=== PATIENT | male | born 1970 | race Hispanic/Latino ===

== ENCOUNTER → 2022-01-18 | Day surgery (SDC) | payer BC ==
[~2022-01-18] MED LIST: HYOSCYAMINE SULFATE 0.5 MG/ML INJ ONE; LIDOCAINE HCL 2% LOCAL INJ 5 ML SDV VIAL INJ ONE; PROPOFOL IV EMULSION 10 MG/ML 20 ML VIAL ONE; PROPOFOL IV EMULSION 50 ML IV ONE
[2022-01-18 11:50] VITALS: BP 114/83
== END | disposition home or self-care (01) ==
LOC: OR 07:18
PROVIDERS: ATTEND Internal Medicine Gastroenterology
DX: K44.9 Diaphragmatic hernia without obstruction or gangrene (principal); K31.7 Polyp of stomach and duodenum; D12.7 Benign neoplasm of rectosigmoid junction; D12.4 Benign neoplasm of descending colon; D12.3 Benign neoplasm of transverse colon; K57.30 Diverticulosis of large intestine without perforation or abscess without bleeding; K62.1 Rectal polyp; K64.8 Other hemorrhoids; E66.9 Obesity, unspecified; D64.89 Other specified anemias; K59.09 Other constipation; Z68.36 Body mass index [BMI] 36.0-36.9, adult; Z86.010 Personal history of colon polyps; Z01.810 Encounter for preprocedural cardiovascular examination; K29.70 Gastritis, unspecified, without bleeding
CPT/HCPCS: 43239; 45384; 45385; 93005; C9113; J1980; J2001; J2704 ×2; 45378; 45380

== ENCOUNTER → 2022-03-16 | Outpatient (CLI) | payer BC | LOC: DX 09:47 | PROVIDERS: ATTEND Internal Medicine Gastroenterology | DX: D64.9 Anemia, unspecified (principal) | CPT/HCPCS: 74250 ==